=== PATIENT | male | born 1980 | race Caucasian/White ===

== ENCOUNTER 2022-10-15 07:22 | Outpatient (OUT) | payer BC, SELFPAY ==
--- NOTE | 2022-10-15 08:07 | CONS_ITS ---
CONSULTATION DATE: ??10/15/2022 TO:? Rhett Santamaria M.D. CHIEF COMPLAINT:? Includes severe bilateral lower back pain, worse on the right than the left side. HISTORY OF PRESENT ILLNESS:? Review of systems, past medical/surgical history were obtained and documented on the health questionnaire and is available upon request. He is a 42-year-old male who reports having pain for at least the last 10 years; however, over the last two years, he reports his pain has increased to a point where it has, at times, altered his quality of life, level of functioning and his sleep pattern.? He rates his pain as being 5-7/10 pain, sharp in character, increased with activities such as standing, walking and performing transitioning maneuvers.? He reports staying in one position too long is quite uncomfortable.? He appears most comfortable in the semi-recumbent position and changing positions frequently.? Denies any change in bowel and bladder habits or new sensorimotor changes in the lower extremities.? MEDICATION:? Current medication includes Percocet which he takes infrequently and reports, when he does take this medication, it does improve his symptomatology and he has no side effects.? He has also been on Robaxin 750 mg he takes as needed, but he reports he has significant side effects with the same, and he uses his gabapentin only on an as needed basis.? EXAM:? His examination is notable for patient having no clinical radiculopathy or myelopathy involving his lower extremities.? He did have severe pain with lumbar facet joint loading maneuvers including bilaterally at L4-5, L5-S1, more severe on the right than the left side, with associated myofascial spasm of the lumbar paravertebral muscles. IMPRESSION:? Our impression is patient appears to have chronic pain secondary to lumbosacral spondylosis with facet joint loading pain clinically.? He has undergone activity modification.? He has tried nonsteroidal agents in the past; however, he reports it does give him some GI distress.? It is also notable that patient has a reactive airway disease.? RECOMMENDATIONS:? I have discontinued the Robaxin.? I have placed him on baclofen 10 mg pills, half a pill to one pill b.i.d. as tolerated.? I have discontinued gabapentin secondary to the patient taking this p.r.n.? I have given him a script for aquatic therapy to trial and to proceed with diagnostic bilateral L4-5, L5-S1 facet joint injection under fluoroscopic guidance.? As part of providing excellent, safe, comprehensive care, the following was completed at our patient's visit: 1. A medication reconciliation and review to ensure accurate knowledge of current/active medications, including asking our patients to inform us about any [id number] medications or herbal remedies/nutritional supplements/alternative remedies. 2. A review to specifically ensure our patients have had annual screening for: elevated body mass index (BMI, see intake chart for exact total), tobacco use, screening for depression, and screening for unhealthy alcohol use.? When screening is concerning, patients are provided with education and the specific recommendation to discuss the concerning health issue and treatment options with their primary care provider. RILEY
== END 2022-10-15 07:23 | disposition home or self-care (01) ==
LOC: PM 07:24
PROVIDERS: PCP Family Medicine; Visit Provider Anesthesiology Pain Medicine
DX: G89.29 Other chronic pain (principal); M47.817 Spondylosis without myelopathy or radiculopathy, lumbosacral region
CPT/HCPCS: G0463

== ENCOUNTER 2022-11-30 16:11 | Emergency (ER) | payer BC, SELFPAY ==
[2022-11-30 16:14] VITALS: BP 171/92; PULSE 95; RESP 18; TEMP 36.6; O2SAT 98; BMI 44.0
[2022-11-30 16:32] VITALS: BP 146/88
--- NOTE | 2022-11-30 16:33 | XR_ITS ---
The [address] [address] Patient Name: KIMI SANCHEZ MRN: [id number] date: 1980 Sex: M Assigned Patient Location: ED.MAIN Current Patient Location: ER Accession/Order Number: [id number] Exam Date: 11/30/2022 17:27 Report Date: 11/30/2022 17:43 At the request of: LOY SCHMIDT Procedure: XR lumbar spine 2-3V EXAM: XR lumbar spine 2-3V HISTORY: low back pain COMPARISON: Lumbar spine MRI 07/18/2019 TECHNIQUE: 2 views FINDINGS: Age-indeterminate pelvic side bending to the right lumbar lordosis is maintained. Vertebral body heights and alignments are unremarkable. Age-related intervertebral disc space narrowing at L4-L5 that was marked as L5-S1 on the prior study. XR/XR lumbar spine 2-3V IMPRESSION: Age-indeterminate pelvic side bending to the right suggesting muscle spasm. L4-L5 intervertebral disc space narrowing. Electronically authenticated by: JENNY CAGLE Date: 11/30/2022 17:43
--- NOTE | 2022-11-30 16:35 | ED.BACK1 ---
HPI - Back Pain/Injury General Chief Complaint: Back Pain/Injury Stated Complaint: BACK PAIN Time Seen by Provider: 11/30/22 16:26 Mode of arrival: walk-in Limitations: no limitations History of Present Illness HPI Narrative: patient is a 42-year-old male who presents to the emergency department for an increase in pain in the right low back and right posterior hip that developed at work today. 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 He is scheduled for an outpatient procedure next week. He states today while he was at work he had an increase in pain, he states he was bending and felt a pop in his low back. He describes spasms to the right low back. No pain radiation to the extremities, no peripheral paresthesias or urinary changes. No incontinence. He states he was concerned that the pop was something concerning him he needed to be seen. Related Data Home Medications Medication Instructions Recorded Confirmed baclofen 10 mg tablet 10 mg PO BID PRN muscle spasm 10/15/22 10/15/22 gabapentin 300 mg capsule 300 mg PO DAILY PRN pain 10/15/22 10/15/22 oxycodone 5 mg capsule 5 mg PO DAILY PRN pain 10/15/22 10/15/22 Previous Rx's Medication Instructions Recorded ketorolac 10 mg tablet 10 mg PO TID PRN pain #10 tabs 11/30/22 methocarbamol 750 mg tablet 750 mg PO TID PRN pain #20 tabs 11/30/22 methylprednisolone 4 mg tablets in See Rx Instructions .Route 11/30/22 a dose pack (Medrol (Bubba)) .COMPLEX #21 ea Allergies Allergy/AdvReac Type Severity Reaction Status Date / Time No Known Drug Allergies Allergy Verified 10/15/22 11:11 Review of Systems ROS Constitutional Denies: fever or chills Ears, nose, mouth, and throat Denies: throat pain Cardiovascular Denies: chest pain Respiratory Denies: shortness of breath or cough Gastrointestinal Denies: nausea or vomiting Musculoskeletal Reports: back pain; Denies: neck pain Integumentary/Breast Denies: rash Neurological Denies: headache PFSH PFSH Social History Smoking status: Former smoker Exam Narrative Exam Narrative: Gen.: Awake, alert, in no distress Head: Normocephalic, atraumatic ENT: Moist mucous membranes Respiratory: No respiratory distress Extremities: Moves extremities equally, normal dorsiflexion and plantarflexion of the bilateral lower extremities. Normal hip flexion bilaterally. No decrease in sensation to the medial thighs Back: diffuse mild tenderness of the paraspinal muscles of the right lumbar spine, no bony point tenderness of the midline lumbar spinne. No obvious deformity or step-off Psych: Normal mood and affect Neuro: No focal neuro deficit Skin: Warm, dry, intact Constitutional Vital Signs, click to edit/add: Last Vital Signs Temp 97.8 F 11/30/22 16:14 Pulse 95 H 11/30/22 16:14 Resp 18 11/30/22 16:14 BP 146/88 H 11/30/22 16:32 Pulse Ox 98 11/30/22 16:14 Course Vital Signs Vital signs: Vital Signs Temperature 97.8 F 11/30/22 16:14 Pulse Rate 95 H 11/30/22 16:14 Respiratory Rate 18 11/30/22 16:14 Blood Pressure 171/92 H 11/30/22 16:14 Pulse Oximetry 98 11/30/22 16:14 Temperature 97.8 F 11/30/22 16:14 Pulse Rate 95 H 11/30/22 16:14 Respiratory Rate 18 11/30/22 16:14 Blood Pressure 146/88 H 11/30/22 16:32 Pulse Oximetry 98 11/30/22 16:14 MDM - Back Pain/Injury MDM Narrative Medical decision making narrative: x-rays of the lumbar spine show positioning to the right consistent with muscle spasm, which was suspected based on the patient's clinical history and exam. He has no focal neuro deficits. No acute abnormalities on the x-rays. Rest, ice, gentle stretching. Patient is in pain management so he'll be treated with Medrol Dosepak, muscle relaxants, NSAIDs. Follow-up with PCP and pain management as scheduled and return to the Emergency Room if symptoms change or worsen Medical Records Attestation: I reviewed the patient's medical records. Imaging Data XR lumbar spine: Attestation: I have reviewed the pertinent imaging results. Radiologist's impression: Procedure: XR lumbar spine 2-3V EXAM: XR lumbar spine 2-3V HISTORY: low back pain COMPARISON: Lumbar spine MRI 07/18/2019 TECHNIQUE: 2 views FINDINGS: Age-indeterminate pelvic side bending to the right lumbar lordosis is maintained. Vertebral body heights and alignments are unremarkable. Age-related intervertebral disc space narrowing at L4-L5 that was marked as L5-S1 on the prior study. IMPRESSION: Age-indeterminate pelvic side bending to the right suggesting muscle spasm. L4-L5 intervertebral disc space narrowing. Electronically authenticated by: JENNY CAGLE Date: 11/30/2022 17:43 Discharge Plan Discharge Chief Complaint: Back Pain/Injury Clinical Impression: Lumbosacral strain Patient Disposition: Home, Self-Care Time of Disposition Decision: 17:57 Condition: Good Prescriptions / Home Meds: New ketorolac 10 mg tablet 10 mg PO TID PRN (Reason: pain) Qty: 10 0RF methocarbamol 750 mg tablet 750 mg PO TID PRN (Reason: pain) Qty: 20 0RF methylprednisolone [Medrol (Bubba)] 4 mg tablets,dose pack See Rx Instructions .ROUTE .COMPLEX Qty: 21 0RF Rx Instructions: Taper as directed No Action oxycodone 5 mg capsule 5 mg PO DAILY PRN (Reason: pain) gabapentin 300 mg capsule 300 mg PO DAILY PRN (Reason: pain) baclofen 10 mg tablet 10 mg PO BID PRN (Reason: muscle spasm) Rx Instructions: 1/2-1tab PO BID Instructions: Low Back Strain (ED) Stand Alone Forms: Portal Instructions Referrals: Rhett Santamaria MD [Primary Care Provider] - 1 week
[2022-11-30] MEDS: ORPHENADRINE 60 MG/ 2 ML VIAL IM (16:56)
[2022-11-30] MEDS: KETOROLAC TROMETHAMINE 60 MG/2 ML VIAL IM (16:56)
[2022-11-30] MEDS: HYDROCODONE/ACETAMINOPHEN 5-325 MG TABLET 1 TAB PO (16:57)
== END 2022-11-30 18:15 | disposition home or self-care (01) ==
PROVIDERS: Emergency Provider Emergency Medicine; PCP Family Medicine
DX: S39.012A Strain of muscle, fascia and tendon of lower back, initial encounter (principal); X50.9XXA Other and unspecified overexertion or strenuous movements or postures, initial encounter; Z79.899 Other long term (current) drug therapy; Z87.891 Personal history of nicotine dependence
CPT/HCPCS: 72100; 96372; 99284

== ENCOUNTER 2022-12-08 07:30 | Day surgery (SDC) | payer BC, SELFPAY ==
[2022-12-08 07:39] VITALS: BP 132/86; PULSE 85; RESP 18; TEMP 37
[2022-12-08 08:14] VITALS: PULSE 100; RESP 20; O2SAT 98
[2022-12-08 08:15] VITALS: BP 211/110
[2022-12-08] MEDS: BUPIVACAINE HCL 0.25% PF 25 MG/10 ML VIAL 8 ML INJ (08:19)
[2022-12-08 08:21] VITALS: BP 196/94; PULSE 102; O2SAT 98
--- NOTE | 2022-12-08 08:41 | P.ON_ITS ---
Date of procedure: 12/08/22 Pre-op diagnosis: lumbar spondylosis Post-op diagnosis: same as pre-op Procedure: Bilateral lumbar 4/5, 5/sacral 1 facet injection Under fluoroscopic guidance Solution injected: 2millilitersMarcaine 0.25% Anesthesia :none Immediate complications none Time out process compliant After informed consent obtained from the patient placed in the [employer] proposition . area was prepped and draped in a sterile fashion using betadine. 25 gauge spinal needle inserted over each of the above mentioned target areas . [place] were directed towards the target under fluoroscopic guidance . after encountering each of the targets , no indication of intravascular intraneuronal or intrathecal needle tip placement. Then 0 .5 to 1 Milliliter was injected at each level. [place] removed postoperatively. patient transferred to recovery in stable condition to be discharged home after meeting criteria Anesthesia: Local Surgeon: Ruba Miranda Condition: stable
== END 2022-12-08 08:25 | disposition home or self-care (01) ==
LOC: SURGOUT 12-09 10:16
PROVIDERS: PCP Family Medicine; Visit Provider Anesthesiology Pain Medicine
DX: M47.816 Spondylosis without myelopathy or radiculopathy, lumbar region (principal)
CPT/HCPCS: 64493; 64494

== ENCOUNTER 2023-06-18 12:38 | Outpatient (OUT) | payer BC, SELFPAY ==
[2023-06-19 06:09] LABS: HBsAg Screen Negative (Negative); HCV Ab Non Reactive (Non Reactive); HIV Ab/p24 Ag Screen Non Reactive (Non Reactive); Hep B Core Ab, Tot Negative (Negative)
[2023-06-19 11:18] LABS: Rapid Plasma Reagin, Quant Non Reactive titer (NonRea<1:1)
[2023-06-22 05:08] LABS: Neisseria gonorrhoeae, NAA Negative (Negative)
== END 2023-06-18 12:39 | disposition home or self-care (01) ==
LOC: LAB 12:38
PROVIDERS: PCP Family Medicine
DX: Z31.448 Encounter for other genetic testing of male for procreative management (principal); Z11.3 Encounter for screening for infections with a predominantly sexual mode of transmission
CPT/HCPCS: 36415; 86592; 86704; 86803; 87340; 87389; 87491; 87591; 88230; 88262